=== PATIENT | female | born 1960 | race Caucasian/White ===

== ENCOUNTER → 2016-07-06 | Outpatient (CLI) | payer MEDICARE, OTHER ==
[~2016-07-06] MED LIST: ACETAMINOPHEN NG; ARTIFICIAL TEAR1 DRP OU; ASPIRIN81 MG GT; ASPIRINEC NG; ATORVASTATIN CA10 MG GT; CALCIUM CITRATE1 T12 GT; CARDURA1 M1 PO; CENTRUM NG; CETAPHIL CLEAN TP; CLARITIN10 M2 GT; CLARITIN10 MG; CLARITIN10 MG NG; COLACE50 MG/5 ML GT; DEBROX15 M1 AU; DEEP SEA; DIAPER RASH; DOCUSATE LIQUID GT; ERYTHROMYCIN; ERYTHROMYCIN O3.5 G1; FERROUS SULFATE; FLOMAX0.4 M1 GT; FLUNISOLIDE25 ML; GABAPENTIN300 MG GT; GOLYTELY SOLU4000 ML NG; GRANULEX SPR113.4 GM TP; KERI TP; KLONOPIN; KLONOPIN NG; MELATONIN3 M4 GT; MIRALAX255 GM; MIRALAX255 GM GT; MONTELUKAST SOD10 MG GT; NEURONTIN; NEURONTIN GT; NEXIUM40 MG/PACK GT; OMEGA 3 FISH OI1 CAP GT; PREMARIN; PREMARIN VAG; PREMARIN VAG CR45 GM; PRILOSEC; PRILOSEC NG; PRILOSEC20 MG GT; REGLAN; REMERON NG; REMERON SOLTAB; ROBITUSSIN100 MG/51 GT; SENNA CONCENTR8.6 MG GT; SINGULAIR; SINGULAIR GT; THERAGRAN; THERAGRAN1 TAB GT; TRICOR PO; VITAMIN D1000 UNI2 GT; [UNRECOGNIZED DRUG - OTHER] TOP; [UNRECOGNIZED DRUG - SUPPLY]
== END | disposition home or self-care (01) ==
LOC: CSSDAY 12:04
DX: M81.0 Age-related osteoporosis without current pathological fracture (principal); Z79.899 Other long term (current) drug therapy
CPT/HCPCS: 96372; J0897